=== PATIENT | male | born 1980 | race African-American/Black ===

== ENCOUNTER 2017-05-21 12:20 | Emergency (ER) | payer SELFPAY ==
[~2017-05-21] VITALS: Ht 172.7 cm; Wt 78.0 kg
[~2017-05-21 12:20] MED LIST: AUGM875T PO; LORTA5 PO; Z.0.WALKERFRONT
[2017-05-21 12:22] VITALS: BP 158/75; PULSE 85; RESP 14; TEMP 98.3; O2SAT 98
--- NOTE | 2017-05-21 13:55 | PD ---
HPI Chief Complaint: Skin Problem Time Seen by Provider: 13:05 Travel History International Travel<30 days: No Contact w/Intl Traveler<30days: No Traveled to known affect area: No History of Present Illness HPI 36-year-old male reports 1 day history of painful insect bite to his left thigh. He denies fever or chills. He reports previous history of abscess. He reports pain at the site of the bite, nonradiating, severity 4 out of 10. No aggravating or alleviating factors. PFSH Past Medical History Medical History: Denies Significant Hx Blood Disorders: No Cancer: No Cardiovascular Problems: No Diminished Hearing: No Endocrine: No Genitourinary: No Musculoskeletal: No Neurologic: No Psychiatric: No Reproductive: No Respiratory: No Immunizations Current: No Tetanus Vaccination: < 5 Years Influenza Vaccination: No Past Surgical History Surgical History: No Previous Surgery Abdominal Surgery: No Cardiac Surgery: No Ear Surgery: No Endocrine Surgery: No Eye Surgery: No Genitourinary Surgery: No Gynecologic Surgery: No Oral Surgery: No Thoracic Surgery: No Social History Alcohol Use: Yes Tobacco Use: Yes (2-3 BLACK AND MILDS) Substance Use: Yes (MARIJUANA) Allergies-Medications (Allergen,Severity, Reaction): Coded Allergies: No Known Allergies (Verified , 05/21/17) Reported Meds & Prescriptions Reported Meds & Active Scripts Active Bactrim DS (Sulfamethoxazole-Trimethoprim) 800-160 Mg Tab 1 Tab PO BID Review of Systems Except as stated in HPI: all other systems reviewed are Neg General / Constitutional: No: Fever Eyes: No: Visual changes HENT: No: Headaches Cardiovascular: No: Chest Pain or Discomfort Respiratory: No: Shortness of Breath Gastrointestinal: No: Abdominal Pain Physical Exam Narrative GENERAL: Well-nourished, well-developed patient. SKIN: Focused skin assessment warm/dry. 0.5 cm diameter indurated abscess left thigh. There is no fluctuance. No lymphangitis. No surrounding sialitis. HEAD: Normocephalic. EYES: No scleral icterus. No injection or drainage. NECK: Supple, trachea midline. No JVD or lymphadenopathy. CARDIOVASCULAR: Regular rate and rhythm without murmurs, gallops, or rubs. RESPIRATORY: Breath sounds equal bilaterally. No accessory muscle use. GASTROINTESTINAL: Abdomen soft, non-tender, nondistended. MUSCULOSKELETAL: No cyanosis, or edema. BACK: Nontender without obvious deformity. No CVA tenderness. Data Data Last Documented VS Vital Signs Date Time Temp Pulse Resp B/P Pulse Ox O2 Delivery O2 Flow Rate FiO2 05/21/17 12:22 98.3 85 14 158/75 98 MDM Medical Decision Making Medical Screen Exam Complete: Yes Emergency Medical Condition: Yes Differential Diagnosis Abscess, cellulitis, infected insect bite Narrative Course 36-year-old male reports 1 day history of painful insect bite to his left thigh. He denies fever or chills. Physical exam reveal 0.5 cm indurated area without fluctuance. This is consistent with early abscess. There is no surrounding cellulitis. Patient will be started on Bactrim and instructed to follow-up with his doctor. Diagnosis Primary Impression: Abscess Referrals: Primary Care Physician Additional Instructions: Take the antibiotics as prescribed. Apply warm compresses to the ear several times per day. Take [id number] Tylenol and/or Motrin as needed for pain. Follow-up the primary care doctor. Scripts Sulfamethoxazole-Trimethoprim (Bactrim DS)800-160 Mg Tab1 Tab PO BID #20 TAB Prov:Carlee Lim 05/21/17 Disposition: 01 DISCHARGE HOME Condition: Stable Carlee Lim May 21, 2017 13:55
[2017-05-21] MEDS ORDERED: BACT800T5 PO (13:58)
== END 2017-05-21 14:02 | disposition home or self-care (01) ==
LOC: NEPK 12:20
DX: L02.416 Cutaneous abscess of left lower limb (principal); F17.200 Nicotine dependence, unspecified, uncomplicated; Z79.899 Other long term (current) drug therapy
CPT/HCPCS: 99283

== ENCOUNTER 2017-08-05 12:50 | Emergency (ER) | payer SELFPAY ==
[~2017-08-05] VITALS: Ht 172.7 cm; Wt 80.0 kg
[~2017-08-05 12:50] MED LIST changes: -AUGM875T PO; +BACT800T5 PO; -LORTA5 PO; -Z.0.WALKERFRONT
[2017-08-05 12:51] VITALS: BP 134/74; PULSE 86; RESP 16; TEMP 97.9; O2SAT 96
[2017-08-05] MEDS ORDERED: CEPH-460 PO (14:59)
[2017-08-05] MEDS ORDERED: IBUP800T23 PO (14:59)
[2017-08-05] MEDS ORDERED: BACT800T5 PO (14:59)
[2017-08-05] MEDS ORDERED: IBUPROFEN 800 MG TAB PO ONE (15:00)
--- NOTE | 2017-08-05 15:00 | PD ---
HPI Chief Complaint: Bite or Sting Time Seen by Provider: 14:55 Travel History International Travel<30 days: No Contact w/Intl Traveler<30days: No Traveled to known affect area: No History of Present Illness HPI 36-year-old male presents to the emergency Department with complaint of a spider bite to his left lateral upper thigh 4 days. He says he didn't see an actual spider. Denies fever, vomiting. Tetanus up-to-date. Says the area is painful. Has not taken any medications or tried any treatments to alleviate her symptoms. Pain is worse with his belt rubs on the area. No known allergies. Has no other medical complaints. No other modifying factors or associated signs and symptoms. PFSH Past Medical History Blood Disorders: No Cancer: No Cardiovascular Problems: No Diminished Hearing: No Endocrine: No Genitourinary: No Musculoskeletal: No Neurologic: No Psychiatric: No Reproductive: No Respiratory: No Immunizations Current: No Past Surgical History Abdominal Surgery: No Cardiac Surgery: No Ear Surgery: No Endocrine Surgery: No Eye Surgery: No Genitourinary Surgery: No Gynecologic Surgery: No Oral Surgery: No Thoracic Surgery: No Social History Alcohol Use: Yes Tobacco Use: Yes (2-3 BLACK AND MILDS) Substance Use: Yes (MARIJUANA) Allergies-Medications (Allergen,Severity, Reaction): Coded Allergies: No Known Allergies (Verified , 08/05/17) Reported Meds & Prescriptions Reported Meds & Active Scripts Active Ibuprofen 800 Mg Tab 800 Mg PO Q6HR PRN Keflex (Cephalexin) 500 Mg Cap 500 Mg PO Q6H 10 Days Bactrim DS (Sulfamethoxazole-Trimethoprim) 800-160 Mg Tab 1 Tab PO BID 10 Days Review of Systems Except as stated in HPI: all other systems reviewed are Neg Physical Exam Narrative GENERAL: Well-nourished, well-developed black male patient, in no acute distress ; afebrile, nontoxic-appearing SKIN: There is an indurated area to the left lateral upper thigh which measures about 1 cm in diameter. It is nonfluctuant and there is pointing with a minimal amount of purulent drainage. There is a zone of inflammation around it but no lymphangitis. HEAD: Atraumatic. Normocephalic. EYES: Pupils equal and round. No scleral icterus. No injection or drainage. ENT: Mucosa pink and moist. Airway patent. NECK: Trachea midline. CARDIOVASCULAR: Regular rate. RESPIRATORY: No accessory muscle use. GASTROINTESTINAL: Flat. MUSCULOSKELETAL: No obvious deformities. No clubbing. No cyanosis. No edema. NEUROLOGICAL: Awake and alert. Oriented 3. No obvious cranial nerve deficits. Motor grossly within normal limits. Normal speech. PSYCHIATRIC: Appropriate mood and affect; insight and judgment normal. Data Data Last Documented VS Vital Signs Date Time Temp Pulse Resp B/P (MAP) Pulse Ox O2 Delivery O2 Flow Rate FiO2 08/05/17 15:07 08/05/17 12:51 97.9 86 16 96 Orders Orders Ibuprofen (Motrin) (08/05/17 15:00) Wound Culture And Gram Stain (08/05/17 15:00) [facility] Medical Decision Making Medical Screen Exam Complete: Yes Emergency Medical Condition: Yes Medical Record Reviewed: Yes Differential Diagnosis Abscess, folliculitis, cellulitis Narrative Course 36-year-old male with abscess of the left thigh. Wound culture pending. Tetanus is up-to-date. Patient is afebrile and nontoxic-appearing. Denies fever, vomiting. Keflex, Bactrim, ibuprofen prescribed for home. Instructed patient to follow up with primary care provider. Patient verbalizes understanding and agreement with treatment plan. Patient is medically cleared and stable for discharge. Discussed reasons to return to the emergency department. Patient agrees with treatment plan. The patients vital signs are stable and the patient is stable for outpatient follow-up and treatment. Patient discharged home, stable and in no acute distress. Diagnosis Primary Impression: Abscess of left thigh Referrals: Primary Care Physician Patient Instructions: Abscess (ED), Abscess Follow-up (ED), General Instructions Departure Forms: Tests/Procedures, Work Release Enter return to work date: Aug 06, 2017 Additional Instructions: Complete full course of antibiotics Warm compresses to the affected area Keep area clean and dry Ibuprofen or Tylenol as directed and as needed for pain and inflammation Follow-up with primary care provider Return to emergency department immediately with worsening of symptoms Med/Other Pt SpecificInfo: Prescription(s) given Scripts Ibuprofen (Ibuprofen) 800 Mg Tab 800 MG PO Q6HR Y for PAIN, #40 TAB 0 Refills Prov: Kat Evans 08/05/17 Cephalexin (Keflex) 500 Mg Cap 500 MG PO Q6H for Infection for 10 Days, #40 CAP 0 Refills Prov: Kat Evans 08/05/17 Sulfamethoxazole-Trimethoprim (Bactrim DS) 800-160 Mg Tab 1 TAB PO BID for Infection for 10 Days, #20 TAB 0 Refills Prov: Kat Evans 08/05/17 Disposition: 01 DISCHARGE HOME Condition: Stable Kat Evans Aug 05, 2017 15:00
== END 2017-08-05 15:15 | disposition home or self-care (01) ==
LOC: NEPK 12:50
DX: L02.416 Cutaneous abscess of left lower limb (principal); B95.62 Methicillin resistant Staphylococcus aureus infection as the cause of diseases classified elsewhere
CPT/HCPCS: 86403; 87070; 87186; 99284

== ENCOUNTER 2018-02-07 10:48 | Emergency (ER) | payer SELFPAY ==
[~2018-02-07] VITALS: Ht 172.7 cm; Wt 75.0 kg
[~2018-02-07 10:48] MED LIST changes: +CEPH-460 PO; +IBUP1TAB7 PO
[2018-02-07 10:49] VITALS: BP 151/91; PULSE 75; RESP 18; TEMP 98.2
[2018-02-07] MEDS ORDERED: CEPH-460 PO (11:59)
--- NOTE | 2018-02-07 11:59 | PD ---
HPI Chief Complaint: Laceration/Skin Injury Time Seen by Provider: 11:30 Travel History International Travel<30 days: No Contact w/Intl Traveler<30days: No Traveled to known affect area: No History of Present Illness HPI 37-year-old -[place] male presents emergency department with accidental laceration to the right volar wrist. Patient states he is being on a door when the window broke slicing his wrist. He denies numbness, tingling, or loss of function of the hand. His last tetanus was in 2012. Pain is minimal. Patient has no known drug allergies. PFSH Past Medical History Blood Disorders: No Cancer: No Cardiovascular Problems: No Diminished Hearing: No Endocrine: No Genitourinary: No Musculoskeletal: No Neurologic: No Psychiatric: No Reproductive: No Respiratory: No Immunizations Current: No Past Surgical History Abdominal Surgery: No Cardiac Surgery: No Ear Surgery: No Endocrine Surgery: No Eye Surgery: No Genitourinary Surgery: No Gynecologic Surgery: No Oral Surgery: No Thoracic Surgery: No Social History Alcohol Use: Yes (daily) Tobacco Use: Yes (2-3 BLACK AND MILDS) Substance Use: Yes (MARIJUANA) Allergies-Medications (Allergen,Severity, Reaction): Coded Allergies: No Known Allergies (Verified Adverse Reaction, Unknown, 02/07/18) Reported Meds & Prescriptions Reported Meds & Active Scripts Active Keflex (Cephalexin) 500 Mg Capsule 500 Mg PO Q8H 5 Days Review of Systems Except as stated in HPI: all other systems reviewed are Neg General / Constitutional: No: Fever Eyes: No: Visual changes HENT: No: Headaches Cardiovascular: No: Chest Pain or Discomfort Respiratory: No: Shortness of Breath Gastrointestinal: No: Abdominal Pain Genitourinary: No: Dysuria Musculoskeletal: No: Pain Skin: Positive Lesions (See history of present illness per), No Rash Neurologic: No: Weakness Psychiatric: No: Depression Endocrine: No: Polydipsia Hematologic/Lymphatic: No: Easy Bruising Physical Exam Narrative GENERAL: Patient appears in no acute distress per SKIN: Warm and dry. Normal color. Normal turgor. Patient has 2 superficial lacerations to the right volar distal wrist, one measures 4 mm, the other one is 2 cm and irregular. There is no deep tissue involvement. HEAD: Atraumatic. Normocephalic. EYES: Pupils equal and round. No scleral icterus. No injection or drainage. ENT: No nasal bleeding or discharge. Mucous membranes pink and moist. Pharynx is clear. Airways patent NECK: Trachea midline. Supple nontender. CARDIOVASCULAR: Regular rate and rhythm. RESPIRATORY: No accessory muscle use. Clear to auscultation. Breath sounds equal bilaterally. MUSCULOSKELETAL: Extremities without clubbing, cyanosis, or edema. No obvious deformities. Normal mail clerk bills strength bilaterally. Neurovascular exam is normal bilaterally NEUROLOGICAL: Awake and alert. No obvious cranial nerve deficits. Motor grossly within normal limits. Five out of 5 muscle strength in the arms and legs. Normal speech. PSYCHIATRIC: Appropriate mood and affect; insight and judgment normal. Data Data Last Documented VS Vital Signs Date Time Temp Pulse Resp B/P (MAP) Pulse Ox O2 Delivery O2 Flow Rate FiO2 02/07/18 10:49 98.2 75 18 151/91 (111) Orders Orders Lidocai-Epi 1%-1:100,000 Inj (Xylocaine- (02/07/18 12:00) Cephalexin (Keflex) (02/07/18 12:00) Ed Discharge Order (02/07/18 11:59) [facility] Medical Decision Making Medical Screen Exam Complete: Yes Emergency Medical Condition: Yes Differential Diagnosis Laceration. Need for closure. Right wrist wound. Narrative Course Laceration is repaired without difficulty Patient is given Keflex 500 mg p.o. now Patient is continued on Keflex 500 mg 3 times daily for 5 days. Patient should keep the wound covered and clean daily with soap and water. Sutures should remain in for 7 days. Procedures Procedure Narrative LACERATION #1 LOCATION: Left volar wrist LENGTH: 4 mm NUMBER OF STITCHES/MAUREEN: 1 simple interrupted REPAIR: The area of the laceration was prepped with Betadine and sterilely draped. The laceration was infiltrated with 1 mL's 1% lidocaine with epi. The wound was copiously irrigated and explored without evidence of foreign body, tendon injury or neurovascular injury. The wound was closed using 5-0 Prolene. This was a single layer repair. A sterile dressing was applied. The patient was advised to keep the dressing clean and dry. Patient tolerated the procedure well. LACERATION #2 LOCATION: Left volar wrist LENGTH: 2 cm NUMBER OF STITCHES/MAUREEN: 6 simple interrupted REPAIR: The area of the laceration was prepped with Betadine and sterilely draped. The laceration was infiltrated with 3 mL's 1% lidocaine with epi. The wound was copiously irrigated and explored without evidence of foreign body, tendon injury or neurovascular injury. The wound was closed using 5-0 Prolene. This was a single layer repair. A sterile dressing was applied. The patient was advised to keep the dressing clean and dry. Patient tolerated the procedure well. Diagnosis Primary Impression: Laceration of right wrist without complication Qualified Codes: S61.511A - Laceration without foreign body of right wrist, initial encounter Patient Instructions: Care For Your Stitches (ED), General Instructions Additional Instructions: Laceration is repaired without difficulty Patient is given Keflex 500 mg p.o. now Patient is continued on Keflex 500 mg 3 times daily for 5 days. Patient should keep the wound covered and clean daily with soap and water. Sutures should remain in for 7 days. Med/Other Pt SpecificInfo: Prescription(s) given, Wound Care Scripts Cephalexin (Keflex) 500 Mg Capsule 500 MG PO Q8H for Infection for 5 Days, #15 CAP 0 Refills Prov: Nishant Stahl MD 02/07/18 Disposition: DISCHARGE HOME Condition: Stable Nathan Quinones Feb 07, 2018 11:59
[2018-02-07] MEDS ORDERED: CEPHALEXIN MONOHYDRATE 500 MG CAP PO ONE (12:00)
[2018-02-07] MEDS ORDERED: LIDOCAINE 1%/EPINEPHrine 1:100,000 SOLN 20 ML VIAL INFIL ONE (12:00)
== END 2018-02-07 12:30 | disposition home or self-care (01) ==
LOC: NEPD 10:48
DX: S61.511A Laceration without foreign body of right wrist, initial encounter (principal); W25.XXXA Contact with sharp glass, initial encounter; Z72.0 Tobacco use
CPT/HCPCS: 12001